=== PATIENT | female | born 2005 | race Caucasian/White ===

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

== ENCOUNTER 2025-03-09 09:43 | Emergency (ER) | payer OTHER, SELFPAY ==
[2025-03-09 09:44] VITALS: BP 134/88; PULSE 84; RESP 16; TEMP 36.6; O2SAT 100
--- NOTE | 2025-03-09 09:45 | ED_ITS ---
HPI - URI/Sore Throat General Chief Complaint: Upper Respiratory Infection Stated Complaint: Sore Throat Time Seen by Provider: 03/09/25 09:45 Source: patient Mode of arrival: ambulatory Limitations: no limitations History of Present Illness HPI Narrative: Tana is a 19-year-old female patient presenting to the clinic today with complaints of a sore throat and stuffy nose x1 day. She reports stuffy nose started yesterday and she woke up this morning with a very sore throat. Has taken Tylenol and ibuprofen for pain. Currently rates her pain 11/14. Denies any chest pain or shortness of breath. No known fevers, chills, body aches. Related Data Home Medications ?Medication ?Instructions ?Recorded ?Confirmed ?Last Taken ?Type norelgestromin 150 mcg-e.estradiol patch 03/09/25 Unk nown History 35 mcg/24 hr weekly transderm patch (Xulane) Allergies Allergy/AdvReac Type Severity Reaction Status Date / Time No Known Allergies Allergy Verified 03/09/25 09:51 Review of Systems Review of Systems: Pertinent positives per HPI. Patient denies any fever, chills, rash, headache, visual changes, dizziness, shortness of breath, chest pain, palpitations, nausea, vomiting, diarrhea, constipation, abdominal pain, or any urinary issues. [facility] Past Medical History Medical History Pilonidal cyst Anxiety and depression Anxiety URI, acute Tonsillitis ADHD (attention deficit hyperactivity disorder) Surgical History Surgical History No significant past surgical history Family History Family History Father Hypertension Mother Hypertension Sibling Diabetes mellitus Grandparent Breast cancer Social History Social History Tobacco type: e-cigarettes/vaping Second hand tobacco smoke exposure: No Alcohol intake: never Substance use: current Substance use type: marijuana Living arrangements: with family Occupation/Education: student Gender identity (if verbalized by the patient): Female Comments At the time of my signature, I reviewed and agree with the nursing past medical, surgical, social, and family history. There is no relevant family history pertinent to the patient complaint. Exam Narrative: General: Well-developed, obese, in no apparent distress Head: Normocephalic, atraumatic Eyes: Pupils equally round and reactive to light bilaterally, EOM intact, sclera and conjunctive clear, no discharge, lids normal Ears: TMs intact and clear, ear canals clear, no drainage, grossly hearing normal. Nose: Nares patent, clear nasal discharge, no inflammation, no sinus tenderness. Mouth: Oral pharynx mildly red without lesions or masses, good dentition, MMM. Neck: Supple, trachea midline, no enlargement of anterior or posterior cervical nodes, no thyroid masses or goiter palpable. Cardio: Regular rate and rhythm, s1 and s2 normal, no murmur appreciated. Resp: Clear to auscultation bilaterally, no rhonchi, rales, wheezing or rubs Course Course Emergency Course: Portions of this record may have been created with voice recognition software. Level of Care: Express Care Visit Vital Signs Vital signs: Vital Signs Temperature 36.6 C 03/09/25 09:44 Pulse Rate 84 03/09/25 09:44 Respiratory Rate 16 03/09/25 09:44 Blood Pressure 134/88 03/09/25 09:44 Pulse Oximetry 100 03/09/25 09:44 Oxygen Delivery Room Air 03/09/25 09:44 Temperature 36.6 C 03/09/25 09:44 Pulse Rate 84 03/09/25 09:44 Respiratory Rate 16 03/09/25 09:44 Blood Pressure 134/88 03/09/25 09:44 Pulse Oximetry 100 03/09/25 09:44 Oxygen Delivery Room Air 03/09/25 09:44 Vital signs reviewed MDM - URI/Sore Throat MDM Narrative Medical decision making narrative: At the time of visit patient is resting comfortably on the exam table. Patient appears to be nontoxic. Complaints of a sore throat and stuffy nose x1 day. She reports stuffy nose started yesterday and she woke up this morning with a very sore throat. Has taken Tylenol and ibuprofen for pain. Currently rates her pain 6/10. Denies any chest pain or shortness of breath. No known fevers, chills, body aches. On exam patient has clear nasal drainage and mildly red throat, TMs intact and clear, lung sounds are clear, and rates regular rate rhythm. COVID and strep test was ordered Labs: COVID testing was negative. Strep test was negative in the clinic today. We will send strep for culture Plan: I suspect patient has URI. Work note was given. Supportive measures were discussed with the patient and they voiced understanding discharge instructions and agrees to treatment plan. Return precautions reviewed Differential Diagnosis Differential diagnosis: Likely upper respiratory infection, otitis media, sinusitis, viral infection, bronchitis, influenza, pharyngitis and other (COVID) Discharge Plan Discharge Clinical Impression: Upper respiratory infection Qualifiers: URI type: unspecified URI Qualified Code(s): J06.9 - Acute upper respiratory infection, unspecified Patient Disposition: Home Condition: Stable Instructions: Antibiotic Form, Cold Symptoms (ED) Additional Instructions: COVID and strep testing was negative. We will send strep for culture and if this comes back positive we will contact him place you on antibiotics at that time. May take DayQuil/NyQuil for cold/flu symptoms Increase fluids and stay well hydrated May take Tylenol or motrin as directed on bottle for pain/fever May use Flonase 1 spray in each nare daily May take OTC antihistamines such as Zyrtec or Claritin daily as directed on bottle May apply Vicks vapor rub to chest to open sinuses Sinus rinses for congestion Cepacol spray, cough drops, throat lozenges, warm tea with honey/lemon, gargle salt water to soothe throat BRAT diet for diarrhea Clear liquids x 24 hours then advance as tolerated for nausea/vomiting Go to the ED if you develop a worsening in your condition- high fever not controlled by Tylenol or Motrin, dehydration, weakness, lethargy, shortness of breath, or chest pain. Follow up with your PCP in 3-5 days if symptoms persist. Patient Language: [place]ese Prescriptions: No Action norelgestromin-ethin.estradiol [Xulane] 150-35 mcg/24 hr patch weekly Follow-up/Referrals: Pasquale,Erika Wiley MD [Primary Care Provider, Family Practice] Stand Alone Forms: Work/School Release IP Time of Disposition: 10:11 Quality NIHSS Nursing Documentation ED NIHSS nursing documentation: reviewed/agree
--- OUTSIDE RECORDS SUMMARY | 2025-03-09 09:50 | XMS_ITS | Clinical Summary ---
Author Organization [facility] Address [address] [place] [address] Phone Care Team Providers Care Poultry Dressing Worker Name Role Phone JenningsRenee MAGNUS GARNER Primary Care Provider [phone] Allergies No known active allergies Medications methylphenidate (RITALIN) 5 MG Tablet Take 5 mg by mouth daily. Take 5mg daily at noon 7 Active methylphenidate (METADATE ER) 20 MG Tablet Controlled Release Take 20 mg by mouth daily. Take 20mg daily at breakfast 7 Active silver sulfADIAZINE (SILVADENE) 1 % Cream Apply 2 times daily. Application Site: [place] (Description and Location) 50 g Active Additional Information Patient not taking.Reported on 11/24/2024 FLUoxetine (PROzac) 10 MG Capsule Take 10 mg by mouth daily. Active Active Problems Problem Noted Date Diagnosed Date Adjustment disorder 11/24/2023 Family History Medical History Relation Name Comments Migraines Mother Relation Name Status Comments Father Alive Mother Alive Sister Alive Social History Tobacco Use Types Packs/Day Years Used Date Smoking Tobacco: Never Passive Smoke Exposure: Yes Tobacco Cessation:Counseling Given: Not Answered Alcohol Use Standard Drinks/Week Comments Not Currently 0 (1 standard drink = 0.6 oz pur e alcohol) Recently quit Sexually Active Control Partners Comments Yes Injection Male Comments No Sex and Gender Information Value Date Recorded Sex Assigned at Female 06/16/2024 6:31 AM FAGOT MAKER Legal Sex Female 11:29 PM CDT Gender Identity Female 06/16/2024 6:31 AM FAGOT MAKER Sexual Orientation Not on file Last Filed Vital Signs Vital Sign Reading Time Taken Comments Blood Pressure 138/80 11/24/2024 11:49 AM CDT Pulse 84 11/24/2024 11:49 AM CDT Temperature 36.7 C (98 F) 11/24/2024 11:49 AM CDT Respiratory Rate 16 11/24/2024 11:49 AM CDT Oxygen Saturation 99% 11/24/2024 11:49 AM CDT Inhaled Oxygen Concentration - - Weight 89.7 kg (197 lb 12 oz) 11/24/2024 9:57 AM CDT Height 157.5 cm (5' 2) 11/24/2024 9:57 AM CDT Body Mass Index 36.17 11/24/2024 9:57 AM CDT Plan of Treatment Health Maintenance Due Date Last Done Comments Hepatitis C Virus (HCV) Screening 2005 Influenza Immunization (#1) 02/05/202503/08, 04/10/2021, 08/01/2020, Additional history exists SARS-COV-2 Immunization ( season) 2025 12/12/2020, 11/22/2020 Respiratory Syncytial Virus (RSV) Immunization (Adult) (1 - 1-dose 75+ series) 2080 Hepatitis B Immunization Completed 006, 04/09/2006, 02/03/2006, Additional history exists Rotavirus Immunization Completed 6, 04/09/2006, 02/03/2006 Hepatitis A Immunization Discontinued 04/27/2008, 0308/2007 Measles Mumps Rubella (MMR) Immunization Discontinued 12/05/2009, 12/20/2006 Polio (IPV) Immunization Discontinued 010, 05/21/2006, 04/09/2006, Additional history exists Varicella Immunization Discontinued 12/05/2009, 2007 Pneumococcal Immunization Combined Aged Out 07/10/2010, 12/20/2006, 05/21/2006, Additional history exists No longer eligible based on patient's age to complete this topic DTaP/Tdap/Td Immunization Discontinued 2016, 12/05/2009, 12/20/2006, Additional history exists TdaP Immunization Completed 11/26/2016 Human Papillomavirus (HPV) Immunization Completed 12/06/2017, 11/26/2016 Meningococcal Immunization (ACWY) Completed 03/26/2022, 11/26/2016 Meningococcal B Immunization Completed 06/18/2022, 03/26/2022 Insurance [facility] Care Teams Poultry Dressing Worker Relationship Specialty Start Date End Date Renee Jennings APRN, CASHIER RECEPTIONIST PCP - General Family Medicine 08/22/24
--- OUTSIDE RECORDS SUMMARY | 2025-03-09 09:50 | XMS_ITS | Clinical Summary ---
Author Organization [facility] Address [address] [place] [address] Care Team Providers Care Tool Planer Set Up Operator Name Role Phone Renetta Sterling MD Primary Care Provider Source Comments [facility],non-owned Affiliates and Associated Physician Practices is amultiple site organization consisting of ambulatory clinics and hospital sitesin [place], [place], [place] and [place]. This disclosure is being madepursuant to the Care Everywhere program and may not contain all information available regarding this patient. Last updated 18.[facility] Allergies No known active allergies Medications * Be aware that medications may not be up to date on this document. Alwaysverify current medications with the patient. Vitamin D3 (CHOLECALCIFERO L) 50 MCG (1999 UT) capsule Take 1 (one) capsule by mouth once daily 1 Active cloNIDine (CATAPRES) 0.1 MG tablet TAKE 1 AND 1/2 TABLETS BY MOUTH EVERY DAY AT BEDTIME 1 Active LILA-D ALLERGY & CONGESTION 60-120 MG tablet Take 1 (one) tablet by mouth every 12 hours as needed For nasal congestion. 1 Active FLUoxetine (PROZAC) 20 MG tablet 2 (two) tablets 1 Active fluticasone propionate (FLONASE) 50 MCG/ACT nasal spray INSTILL 1 SPRAY INTO EACH NOSTRIL BID 0 Active medroxyPROGESTE Stephane (DEPO-PROVERA) 150 MG/ML vial 1 Active ondansetron, disintegrating, (ZOFRAN ODT) 4 MG tablet DISSOLVE 1 TABLET ON THE TONGUE EVERY 6 HOURS NEEDED FOR NAUSEA OR VOMITING 1 Active omeprazole (PriLOSEC) 40 MG capsule Take 1 (one) capsule by mouth daily before breakfast Active ferrous sulfate 325 (65 FE) MG tablet Take 1 (one) tablet by mouth 2 times daily 60 tablet 3 3 Active montelukast (Singulair) 10 MG tablet Take 1 (one) tablet by mouth once daily 30 tablet 5 3 Active Active Problems Problem Noted Date Diagnosed Date SARA (obstructive sleep apnea) Immunizations Immunization Administration Dates Next Due DTAP/HEP B/IPV 05/21/2006,04/09/2006,02/03/2006 DTaP VACCINE IM (6wk-6yrs) 12/05/2009,12/20/2006 HEP A PEDS 2 DOSE 04/27/2008,08/08/2007 HEP B VACCINE, PED/ADOL 2005 HIB VACCINE 07/10/2010, 7,05/21/2006,02/03 Human Papilloma Virus Nineva lent Vaccine 12/06/2017,11/26/2016 INFLUENZA VACCINE, QUADR. (A FLURIA, FLUZONE QUADRIVALENT; 6MO+) (IIV4) 07/10/2010 INFLUENZA VACCINE, QUADR. (F LUZONE; FLULAVAL; FLUARIX; AFLURIA QUADRIVALENT; 6MO+), 0.5 ML (IIV4) 04/07/2019,03/29/2018,03/29/2017,03/17 MENINGOCOCCAL ACWY (MCV4P) VAC IM 11/26/2016 MMR 12/05/2009,12/20/2006 PNEUMOCOCCAL PCV7 CONJ, PEDS 07/10/2010, 12/20/2006,05/21/2006,04/09,02/03/2006 POLIO IPV 12/05/2009 ROTAVIRUS VACCINE 05/21/2006,04/09/2006,02/04/20 06 TDAP (7yrs+) 11/26/2016 VARICELLA 12/05/2009,08/08/2007 Social History Tobacco Use Types Packs/Day Years Used Date Smoking Tobacco: Some Days Tobacco Cessation:Ready to Q uit: Not Asked; Counseling Given: Not Answered Comments No Sex and Gender Information Value Date Recorded Sex Assigned at Not on file Legal Sex Female 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 Gender Identity Not on file Sexual Orientation Not on file Last Filed Vital Signs Vital Sign Reading Time Taken Comments Blood Pressure 114/64 02/04/2023 7:52 AM CDT Pulse 75 02/04/2023 7:52 AM CDT Temperature 36.2 C (97.1 F) 02/04/2023 7:34 AM CDT Respiratory Rate 18 02/04/2023 7:52 AM CDT Oxygen Saturation 97% 02/04/2023 7:52 AM CDT Inhaled Oxygen Concentration - - Weight 83.9 kg (184 lb 15.5 oz) 02/04/2023 7:34 AM CDT Height 158.5 cm (5' 2.4) 02/04/2023 7:34 AM CDT Body Mass Index 33.4 02/04/2023 7:34 AM CDT Body Mass Index Percentile 97.01% 02/04/2023 7:3 4 AM CDT Growth Chart: CDC (Girls, 2- 20 Years) Plan of Treatment Health Maintenance Due Date Last Done Comments PNEUMOCOCCAL VACCINE (1 of 1 - PPSV23, PCV20, or PCV21) 11/15/2011 07/10/2010, 12/20/2006, 05/21/2006, Additional history exists HIV SCREENING 2020 CHLAMYDIA/GONORRHEA SCREENING 2021 MENINGOCOCCAL (Group B) VACCINE SHARED DECISION-MAKING (1 of 2 - Standard) 2021 HEPATITIS C SCREENING 11/10/2023 DEPRESSION SCREENING 06/07/2024 COVID-19 VACCINE (1 - season) 2025 INFLUENZA VACCINE (#1) 2025 9, 03/29/2018, 03/29/2017, Additional history exists DTAP/TDAP/TD VACCINES (7 - Td or Tdap) 11/26/2026 11/26/2016, 12/05/2009, 12/20/2006, Additional history exists ZOSTER VACCINE (1 of 2) 11/15/2055 HEPATITIS B VACCINE Completed 05/21/2006, 04/09/2006, 02/03/2006, Additional history exists HIB VACCINE Completed 07/10/2010, 08/05, 05/21/2006, Additional history exists MENINGOCOCCAL GROUPS A/C/Y/W VACCINE Aged Out 11/26/2016 No longer eligible based on patient's age to complete this topic HPV VACCINE Completed 12/06/2017, 11/26/2016 Insurance [facility] CARE MEDICAID - OUT OF STATE HEALTH CARE CARE Care Teams Tool Planer Set Up Operator Relationship Specialty Start Date End Date Renetta Sterling MD [address], [address] [place] [phone] PCP - General Pediatrics 12/05/20
[2025-03-09 10:15] LABS: EDCOVIDSCREEN Negative (Negative); EDSTREPNEGPOS1 Negative (Negative)
== END 2025-03-09 10:18 | disposition home or self-care (01) ==
PROVIDERS: Emergency Provider Nurse Practitioner Family; PCP Family Medicine
DX: J06.9 Acute upper respiratory infection, unspecified (principal); Z20.822 Contact with and (suspected) exposure to COVID-19; F17.290 Nicotine dependence, other tobacco product, uncomplicated
CPT/HCPCS: 87081; 87426; 87880; 99213; G0463